=== PATIENT | male | born 1960 | race African-American/Black ===

== ENCOUNTER 2024-07-10 14:30 | Emergency (ER) | payer MEDICARE, MEDICAID ==
[~2024-07-10] VITALS: Ht 190.5 cm; Wt 77.0 kg
[2024-07-10 15:48] VITALS: BP 121/81; PULSE 65; RESP 18; TEMP 98.4; O2SAT 99
[2024-07-10] MEDS ORDERED: IBUP-2029 MT (16:39)
[2024-07-10] MEDS ORDERED: METH-653 MT (16:39)
[2024-07-10] MEDS ORDERED: LIDO700A30 TP (16:39)
[2024-07-10] MEDS: KETOROLAC 30MG/ML VIAL IM ONE (17:10)
[2024-07-10] MEDS: METHOCARBAMOL 500MG TABLET PO ONE (17:10)
== END 2024-07-10 17:10 | disposition home or self-care (01) ==
LOC: ER 14:30
DX: S33.5XXA Sprain of ligaments of lumbar spine, initial encounter (principal); X58.XXXA Exposure to other specified factors, initial encounter; Y93.89 Activity, other specified; Y92.89 Other specified places as the place of occurrence of the external cause; Y99.8 Other external cause status
CPT/HCPCS: 72100; 99283